=== PATIENT | female | born 1985 | race Caucasian/White ===

== ENCOUNTER 2022-02-27 21:15 | Inpatient (IN) | payer OTHER ==
[~2022-02-27] VITALS: Ht 165.1 cm; Wt 95.3 kg
[~2022-02-27 21:15] MED LIST: ABILIFY 5 MG TAB5 MG PO; ROCEPHIN IM/I2000 MG IV; TOPAMAX50 MG PO; ZOLOFT50 MG PO
[2022-02-27 22:37] LABS: HEMOGLOBIN 11.2 gm/dl (12.3-15.3); RED BLOOD COUNT 3.96 M/UL (4.00-5.10); WHITE BLOOD COUNT 10.9 K/UL (4.5-11.0)
[2022-02-27 23:00] LABS: BUN/CREATININE RATIO 12 (0-10)
[2022-02-28] MEDS ORDERED: FOLIC ACID 1 MG1 MG PO (04:20)
[2022-02-28] MEDS ORDERED: WELLBUTRIN SR150 M1 PO (04:21)
[2022-02-28] MEDS ORDERED: IBUPROFEN600 MG PO (11:26)
[2022-02-28] MEDS ORDERED: LABETALOL HCL100 MG PO (11:26)
[2022-02-28] MEDS ORDERED: COLACE 100MG C100 MG PO (11:26)
[2022-02-28] MEDS ORDERED: HYDROCODON-ACE1 EAC6 PO (11:26)
[2022-03-01 04:05] LABS: HEMOGLOBIN 9.6 gm/dl (12.3-15.3)
[2022-03-01 09:04] LABS: HEMOGLOBIN 9.9 gm/dl (12.3-15.3)
== END 2022-03-02 14:28 | disposition home or self-care (01) | DRG 787 ==
LOC: GENOP 21:15 → OB 22:15
PROVIDERS: Obstetrics & Gynecology; ADMIT Obstetrics & Gynecology
PROC: 4A1HXCZ Monitoring of Products of Conception, Cardiac Rate, External Approach (ICD-10-PCS; 2022-02-27)
PROC: 3E033VJ Introduction of Other Hormone into Peripheral Vein, Percutaneous Approach (ICD-10-PCS; 2022-02-27)
PROC: 3E0234Z Introduction of Serum, Toxoid and Vaccine into Muscle, Percutaneous Approach (ICD-10-PCS; 2022-02-28)
PROC: 10D00Z1 Extraction of Products of Conception, Low, Open Approach (ICD-10-PCS; principal; 2022-02-28 11:44)
DX: O14.94 Unspecified pre-eclampsia, complicating childbirth (principal); O98.42 Viral hepatitis complicating childbirth; Z3A.38 38 weeks gestation of pregnancy; Z20.822 Contact with and (suspected) exposure to COVID-19; Z37.0 Single live birth; B19.20 Unspecified viral hepatitis C without hepatic coma; Z90.49 Acquired absence of other specified parts of digestive tract; Z88.2 Allergy status to sulfonamides; O76 Abnormality in fetal heart rate and rhythm complicating labor and delivery; Z28.310 Unvaccinated for COVID-19; Z98.1 Arthrodesis status; Z82.49 Family history of ischemic heart disease and other diseases of the circulatory system; Z83.3 Family history of diabetes mellitus; Z84.1 Family history of disorders of kidney and ureter; Z80.1 Family history of malignant neoplasm of trachea, bronchus and lung; Z23 Encounter for immunization
CPT/HCPCS: 36415; 80053; 81001; 82570; 82800; 83735; 84156; 84550; 85014; 85018; 85025; 90715; C9113; J0595; J0690; J1650; J1885; J2274; J2370; J2590; J3475; J7030; J7120; U0002